=== PATIENT | female | born 2000 | race Caucasian/White ===

== ENCOUNTER 2019-01-18 20:09 | Emergency (ER) | payer MEDICAID ==
[~2019-01-18] VITALS: Ht 152.4 cm; Wt 58.5 kg
[2019-01-18 20:52] VITALS: Ht 152.4 cm; Wt 58.5 kg
[2019-01-19 00:12] VITALS: BP 107/63
== END 2019-01-19 00:12 | disposition home or self-care (01) ==
LOC: ED 20:09
DX: N76.4 Abscess of vulva (principal)
CPT/HCPCS: J2001

== ENCOUNTER 2019-05-25 14:49 | Emergency (ER) | payer MEDICAID ==
[~2019-05-25] VITALS: Ht 152.4 cm; Wt 54.0 kg
[2019-05-25 15:06] VITALS: Ht 152.4 cm; Wt 54.0 kg
[2019-05-25 20:00] VITALS: BP 113/63
== END 2019-05-25 20:00 | disposition home or self-care (01) ==
LOC: ED 14:49
DX: N76.4 Abscess of vulva (principal)
CPT/HCPCS: J2001